=== PATIENT | female | born 1935 | race Caucasian/White ===

== ENCOUNTER 2021-05-26 00:19 | Inpatient (IN) | payer MEDICARE ==
[2021-05-26] MEDS ORDERED: Morphine 2 MG/ML VIAL SLOW IVP PRN (03:09)
[2021-05-26] MEDS ORDERED: hydrALAZINE 20 MG/ML VIAL SLOW IVP PRN (03:09)
[2021-05-26] MEDS ORDERED: Ondansetron PF 4 MG/2 ML Vial IVP PRN (03:09)
[2021-05-26] MEDS ORDERED: Ondansetron PF 4 MG/2 ML Vial ONE ×2 (03:30→17:45)
[2021-05-26] MEDS ORDERED: Labetalol HCl 100 MG/20 ML VIAL ONE (03:30)
[2021-05-26] MEDS ORDERED: Morphine 4 MG/ML VIAL ONE (03:30)
[2021-05-26] MEDS ORDERED: Dextrose 5% in Water 1,000 ML IV PRN (03:37)
[2021-05-26] MEDS ORDERED: Insulin Regular 300 UNITS/3 ML VIAL SC PRN (03:37)
[2021-05-26] MEDS ORDERED: Dextrose 50% Abboject 50 ML SYRINGE SLOW IVP PRN (03:37)
[2021-05-26 04:18] LABS: #Lymphocytes 1.4 thou/uL (1.20-3.40); #Monocytes 0.6 thou/uL (0.11-0.59); #Neutrophils 9.6 thou/uL (1.40-6.50); %Basophils 0.1 % (0.0-1.0); %Eosinophils 0.4 % (0.0-10.0); %Lymphocytes 11.7 % (21.0-51.0); %Monocytes 5.4 % (0.0-10.0); %Neutrophils 82.4 % (42.0-75.0); Hemoglobin 15.2 g/dL (12.0-16.0); Mean Corpuscular HGB CONC 33.6 g/dL (32.0-36.0); Mean Corpuscular Hemoglobin 30.3 pg (27.0-31.0); Mean Corpuscular Volume 90.4 fL (78.0-98.0); Mean Platelet Volume 7.4 fL (7.4-10.4); Platelet Count 272 thou/uL (130-400); Red Blood Cell (RBC) Count 5.02 mill/uL (4.20-5.40); White Blood Cell (WBC) Count 11.6 thou/uL (4.8-10.8)
[2021-05-26 04:25] LABS: Prothrombin Time 13.7 sec (12.0-14.7)
[2021-05-26 04:26] LABS: PTT 32.1 sec (22.9-36.1)
[2021-05-26 04:34] LABS: Anion Gap 15 mmol/L (10-20); BUN (Urea Nitrogen) 13 mg/dL (9.8-20.1); Calc. Creatinine Clearance 0 mL/min (70-130); Calcium 9.1 mg/dL (7.8-10.44); Carbon Dioxide 23 mmol/L (23-31); Chloride 107 mmol/L (98-107); Glucose 189 mg/dL (83-110); Phosphorus 2.8 mg/dL (2.3-4.7); Sodium 141 mmol/L (136-145)
[2021-05-26 04:36] LABS: Magnesium 1.7 mg/dL (1.6-2.6)
[2021-05-26 07:19] VITALS: BMI 24.9
[2021-05-26] MEDS ORDERED: Magnesium Sulfate 2 GM in Sodium Chloride 0.9% 100 ML IV SCH (09:15)
[2021-05-26] MEDS ORDERED: Magnesium 2 GM/50 ML 2 GM in Premix Bag 1 BAG IVPB SCH (09:15)
[2021-05-26 09:49] LABS: SARS-CoV-2 NAA Rapid Test Not Detected (NotDetected)
[2021-05-26] MEDS: Sodium Chloride 0.9% 1,000 ML IV SCH ×2 (10:57→17:33)
[2021-05-26] MEDS: Acetaminophen 325 MG TAB PO SCH ×3 (10:57→17:33)
[2021-05-26] MEDS: Famotidine/PF 20 mg/2ml Vial SLOW IVP SCH (10:57)
[2021-05-26] MEDS: Senokot S 8.6-50 MG TAB PO SCH ×2 (10:58→21:23)
[2021-05-26] MEDS: Gabapentin 100 MG CAP PO SCH ×3 (10:58→21:23)
[2021-05-26] MEDS: Polyethylene Glycol 3350 17 GM Packet PO SCH (10:58)
[2021-05-26] MEDS ORDERED: FLU VACC QS2021-22(65YR UP)/PF 240 MCG/0.7 ML SYRINGE IM ONE (12:00)
[2021-05-26] MEDS ORDERED: Fentanyl 100 MCG/2 ML VIAL ONE ×2 (15:01→17:03)
[2021-05-26] MEDS ORDERED: ceFAZolin 2 GM/DEX 5% 100 ML BAG ONE (16:59)
[2021-05-26] MEDS ORDERED: Rocuronium Bromide 10 MG/ML (10ML VIAL) ONE (17:45)
[2021-05-26] MEDS ORDERED: PHENYLEPHRINE-NS 100 MCG/ML 10 ML SYRINGE ONE (17:45)
[2021-05-26] MEDS ORDERED: Lidocaine 1% PF 5 ML VIAL ONE (17:45)
[2021-05-26] MEDS ORDERED: Glycopyrrolate 0.2 MG/ML 5 ML SYRINGE ONE (17:45)
[2021-05-26] MEDS ORDERED: PROPOFOL 200 MG/20 ML VIAL ONE (17:45)
[2021-05-26] MEDS ORDERED: Dexamethasone 20 MG/5 ML VIAL ONE (17:45)
[2021-05-26] MEDS ORDERED: Promethazine HCl 25 MG/ML VIAL IM PRN (18:40)
[2021-05-26] MEDS ORDERED: Ondansetron HCl/PF 4 MG/2 ML Vial IVP PRN (18:40)
[2021-05-26] MEDS ORDERED: Promethazine HCl 25 MG/ML VIAL IVPB PRN (18:40)
[2021-05-27] MEDS: Acetaminophen 325 MG TAB PO SCH ×4 (01:20→19:08)
[2021-05-27] MEDS: Cyclobenzaprine 10 MG TAB PO PRN (01:21)
[2021-05-27] MEDS: ceFAZolin Sodium/D5W 2 GM in Premix Bag 1 BAG IVPB SCH ×2 (02:34→11:44)
[2021-05-27] MEDS: Sodium Chloride 0.9% 1,000 ML IV SCH ×2 (02:35→04:42)
[2021-05-27 06:55] LABS: #Lymphocytes 0.9 thou/uL (1.20-3.40); #Monocytes 0.5 thou/uL (0.11-0.59); #Neutrophils 7.1 thou/uL (1.40-6.50); %Basophils 0.5 % (0.0-1.0); %Eosinophils 0.2 % (0.0-10.0); %Lymphocytes 10.5 % (21.0-51.0); %Monocytes 5.7 % (0.0-10.0); %Neutrophils 83.2 % (42.0-75.0); Hemoglobin 13.9 g/dL (12.0-16.0); Mean Corpuscular HGB CONC 34.5 g/dL (32.0-36.0); Mean Corpuscular Hemoglobin 31.3 pg (27.0-31.0); Mean Corpuscular Volume 90.8 fL (78.0-98.0); Mean Platelet Volume 7.5 fL (7.4-10.4); Platelet Count 253 thou/uL (130-400); RBC Distribution Width 11.8 % (11.5-14.5); Red Blood Cell (RBC) Count 4.43 mill/uL (4.20-5.40); White Blood Cell (WBC) Count 8.6 thou/uL (4.8-10.8)
[2021-05-27 06:58] LABS: Phosphorus 3.3 mg/dL (2.3-4.7)
[2021-05-27 07:00] LABS: Anion Gap 12 mmol/L (10-20); BUN (Urea Nitrogen) 7 mg/dL (9.8-20.1); Calc. Creatinine Clearance 57 mL/min (70-130); Calcium 8.5 mg/dL (7.8-10.44); Carbon Dioxide 24 mmol/L (23-31); Chloride 105 mmol/L (98-107); Glucose 155 mg/dL (83-110); Magnesium 1.5 mg/dL (1.6-2.6); Sodium 137 mmol/L (136-145)
[2021-05-27] MEDS ORDERED: traMADol HCl 50 MG TAB PO PRN ×2 (09:20)
[2021-05-27] MEDS: Senokot S 8.6-50 MG TAB PO SCH ×2 (09:23→20:43)
[2021-05-27] MEDS: Famotidine/PF 20 mg/2ml Vial SLOW IVP SCH (09:23)
[2021-05-27] MEDS: Polyethylene Glycol 3350 17 GM Packet PO SCH (09:24)
[2021-05-27] MEDS: Gabapentin 100 MG CAP PO SCH ×3 (09:24→20:40)
[2021-05-27] MEDS ORDERED: Magnesium Sulfate 4 GM in Sodium Chloride 0.9% 250 ML 250 ML IVPB SCH (10:15)
[2021-05-27] MEDS ORDERED: ceFAZolin Sodium/D5W 2 GM in Premix Bag 1 BAG IVPB SCH (11:30)
[2021-05-28] MEDS: Acetaminophen 325 MG TAB PO SCH ×5 (00:27→18:13)
[2021-05-28] MEDS: Senokot S 8.6-50 MG TAB PO SCH ×2 (09:06→20:49)
[2021-05-28] MEDS: Aspirin 81 mg Enteric Coated Tablet PO SCH ×2 (09:06→20:49)
[2021-05-28] MEDS: Polyethylene Glycol 3350 17 GM Packet PO SCH (09:06)
[2021-05-28] MEDS: Gabapentin 100 MG CAP PO SCH ×3 (09:34→20:49)
[2021-05-28] MEDS: Melatonin 3 MG TAB PO SCH (18:13)
[2021-05-28] MEDS ORDERED: Insulin Regular 300 UNITS/3 ML VIAL SC PRN (22:02)
[2021-05-29] MEDS: Acetaminophen 325 MG TAB PO SCH ×4 (05:43→18:06)
[2021-05-29 09:52] LABS: #Basophils 0.1 thou/uL (0.0-0.2); #Eosinphils 0.3 thou/uL (0.0-0.7); #Lymphocytes 1.5 thou/uL (1.20-3.40); #Monocytes 0.4 thou/uL (0.11-0.59); %Basophils 0.7 % (0.0-1.0); %Eosinophils 3.4 % (0.0-10.0); %Lymphocytes 18.3 % (21.0-51.0); %Neutrophils 72.7 % (42.0-75.0); Hemoglobin 14.5 g/dL (12.0-16.0); Mean Corpuscular HGB CONC 33.3 g/dL (32.0-36.0); Mean Corpuscular Hemoglobin 30.2 pg (27.0-31.0); Mean Corpuscular Volume 90.8 fL (78.0-98.0); Mean Platelet Volume 7.7 fL (7.4-10.4); Platelet Count 332 thou/uL (130-400); RBC Distribution Width 12.1 % (11.5-14.5); Red Blood Cell (RBC) Count 4.79 mill/uL (4.20-5.40); White Blood Cell (WBC) Count 8.3 thou/uL (4.8-10.8)
[2021-05-29] MEDS: Gabapentin 100 MG CAP PO SCH ×3 (10:00→20:41)
[2021-05-29 10:05] LABS: Phosphorus 2.5 mg/dL (2.3-4.7)
[2021-05-29 10:07] LABS: Anion Gap 14 mmol/L (10-20); BUN (Urea Nitrogen) 13 mg/dL (9.8-20.1); Calc. Creatinine Clearance 52 mL/min (70-130); Calcium 8.7 mg/dL (7.8-10.44); Carbon Dioxide 22 mmol/L (23-31); Chloride 106 mmol/L (98-107); Glucose 200 mg/dL (83-110); Potassium 3.9 mmol/L (3.5-5.1); Sodium 138 mmol/L (136-145)
[2021-05-29] MEDS: Polyethylene Glycol 3350 17 GM Packet PO SCH (10:10)
[2021-05-29] MEDS: Senokot S 8.6-50 MG TAB PO SCH ×2 (10:11→20:57)
[2021-05-29] MEDS: Aspirin 81 mg Enteric Coated Tablet PO SCH ×2 (10:23→20:41)
[2021-05-29] MEDS: metFORMIN XR 500 MG TAB PO SCH (16:00)
[2021-05-29] MEDS: Melatonin 3 MG TAB PO SCH (18:06)
[2021-05-29] MEDS: Cyclobenzaprine 10 MG TAB PO PRN (20:57)
[2021-05-29] MEDS ORDERED: metFORMIN XR 500 MG TAB PO SCH (21:00)
[2021-05-30] MEDS: Acetaminophen 325 MG TAB PO SCH ×4 (00:55→18:44)
[2021-05-30 03:19] VITALS: TEMP 98.3
[2021-05-30] MEDS: Gabapentin 100 MG CAP PO SCH ×2 (08:24→14:26)
[2021-05-30] MEDS: Aspirin 81 mg Enteric Coated Tablet PO SCH (08:25)
[2021-05-30] MEDS: Senokot S 8.6-50 MG TAB PO SCH (08:25)
[2021-05-30] MEDS: Polyethylene Glycol 3350 17 GM Packet PO SCH (08:25)
[2021-05-30] MEDS: metFORMIN XR 500 MG TAB PO SCH (16:00)
[2021-05-30 16:05] VITALS: BP 133/67
[2021-05-30] MEDS: Melatonin 3 MG TAB PO SCH (18:44)
== END 2021-05-30 19:45 | DRG 482 ==
LOC: ERS 00:19 → SJJU 03:08
PROVIDERS: ADMIT Surgery; ATTEND Surgery
PROC: 0QH736Z Insertion of Intramedullary Internal Fixation Device into Left Upper Femur, Percutaneous Approach (ICD-10-PCS; principal; 2021-05-26)
DX: S72.012A Unspecified intracapsular fracture of left femur, initial encounter for closed fracture (principal); W18.30XA Fall on same level, unspecified, initial encounter; Z20.822 Contact with and (suspected) exposure to COVID-19; E11.9 Type 2 diabetes mellitus without complications; Z90.710 Acquired absence of both cervix and uterus; Z79.84 Long term (current) use of oral hypoglycemic drugs
CPT/HCPCS: 36415; 36416; 70450; 71045; 72125; 72192; 76000; 80048; 83735; 84100; 85025; 85610; 85730; 86850; 86900; 86901; 93005; 96374; 96375; C1713; C1769; G0390; J0360; J1100; J1815; J2270; J2405; J2704; J3010; J3475; J7050; S0028; U0002